=== PATIENT | male | born 1950 | race Caucasian/White ===

== ENCOUNTER → 2021-01-07 | Day surgery (SDC) | payer MEDICARE ==
[2021-01-03 14:31] LABS: BASOPHILS # (AUTO) 0.1 (0.0-0.1); BASOPHILS % 0.7 % (0.0-1.0); EOSINOPHILS # (AUTO) 0.2 (0.0-0.4); EOSINOPHILS % 1.9 % (0.0-6.0); HEMATOCRIT 41.5 % (38.2-49.6); HEMOGLOBIN 13.6 g/dL (14.0-18.0); LYMPHOCYTES % 24.1 % (18.0-39.1); MEAN CORPUSCULAR HEMOGLOBIN 32.9 pg (28-32); MEAN CORPUSCULAR HGB CONC 32.8 g/dL (31-35); MEAN CORPUSCULAR VOLUME 100.5 fL (81-99); MONOCYTES # (AUTO) 0.7 (0.2-0.8); MONOCYTES % 8.9 % (4.4-11.3); NEUTROPHILS # (AUTO) 5.1 (2.1-6.9); NEUTROPHILS % 63.7 % (38.7-80.0); PLATELET COUNT 154 x10e3/uL (140-360); RED BLOOD COUNT 4.13 x10e6/uL (4.3-5.7); RED CELL DISTRIBUTION WIDTH 13.1 % (11.7-14.4)
[2021-01-03 14:44] LABS: INR 0.87; PROTHROMBIN TIME 12.4 seconds (11.9-14.5)
[2021-01-03 14:45] LABS: PARTIAL THROMBOPLASTIN TIME 35.6 seconds (23.8-35.5)
[2021-01-03 14:52] LABS: ANION GAP 12.9 mmol/L (8-16); CALCIUM 9.4 mg/dL (8.4-10.2); CREATININE, SERUM 1.94 mg/dL (0.72-1.25); POTASSIUM 4.9 mmol/L (3.5-5.1)
[~2021-01-07] MED LIST: ASPIRIN81 MG PO; CLOPIDOGREL75 MG PO; FENTANYL CITRATE/PF 100MCG/2 ML INJ ONE; GLUCAGON FOR INJ 1 MG VIAL ONE; HYOSCYAMINE SULFATE 0.5 MG/ML INJ ONE; IRON PO; LIDOCAINE HCL 2% LOCAL INJ 5 ML SDV VIAL INJ ONE; LIPITOR10 MG PO; METOPROLOL TART25 MG PO; MIDAZOLAM HCL 2 MG/2 ML VIAL ONE; MULTI-VITAMIN1 EACH PO; NEXIUM20 MG PO; NITROGLYCERIN0.4 MG SL; PROPOFOL IV EMULSION 10 MG/ML 20 ML VIAL ONE; TYLENOL ARTHRITIS PO
[2021-01-07 14:42] VITALS: BP 130/81
== END | disposition home or self-care (01) ==
LOC: OR 09:56
PROVIDERS: ATTEND Internal Medicine Gastroenterology
DX: K29.70 Gastritis, unspecified, without bleeding (principal); K63.5 Polyp of colon; K21.9 Gastro-esophageal reflux disease without esophagitis; K20.90 Esophagitis, unspecified without bleeding; K44.9 Diaphragmatic hernia without obstruction or gangrene; K57.30 Diverticulosis of large intestine without perforation or abscess without bleeding; K64.8 Other hemorrhoids; R19.5 Other fecal abnormalities; D64.89 Other specified anemias; J44.9 Chronic obstructive pulmonary disease, unspecified; I25.10 Atherosclerotic heart disease of native coronary artery without angina pectoris; I25.2 Old myocardial infarction; I12.9 Hypertensive chronic kidney disease with stage 1 through stage 4 chronic kidney disease, or unspecified chronic kidney disease; N18.30 Chronic kidney disease, stage 3 unspecified; E78.00 Pure hypercholesterolemia, unspecified; F32.9 Major depressive disorder, single episode, unspecified; Z88.6 Allergy status to analgesic agent; Z88.0 Allergy status to penicillin; Z01.810 Encounter for preprocedural cardiovascular examination; Z01.812 Encounter for preprocedural laboratory examination; Z79.02 Long term (current) use of antithrombotics/antiplatelets; Z79.82 Long term (current) use of aspirin; Z68.31 Body mass index [BMI] 31.0-31.9, adult
CPT/HCPCS: 36415; 43239; 45380; 45385; 80048; 85025; 85610; 85730; 93005; J2250; J3010; 45378; J1610; J1980; J2001

== ENCOUNTER → 2021-03-04 | Outpatient (CLI) | payer MEDICARE ==
[~2021-03-04] MED LIST changes: -FENTANYL CITRATE/PF 100MCG/2 ML INJ ONE; -GLUCAGON FOR INJ 1 MG VIAL ONE; -HYOSCYAMINE SULFATE 0.5 MG/ML INJ ONE; +IOPAMIDOL 370 MG/ML 200 ML INFUS..BTL INJ ONE; -LIDOCAINE HCL 2% LOCAL INJ 5 ML SDV VIAL INJ ONE; -MIDAZOLAM HCL 2 MG/2 ML VIAL ONE; -PROPOFOL IV EMULSION 10 MG/ML 20 ML VIAL ONE; +SODIUM CHLORIDE 0.9% 500ML 500 ML ONE; +SODIUM CHLORIDE 0.9% 50ML 50 ML ONE
== END ==
LOC: CT 15:31
PROVIDERS: ATTEND Internal Medicine Gastroenterology
DX: R10.9 Unspecified abdominal pain (principal); K29.60 Other gastritis without bleeding
CPT/HCPCS: 74177; J7040; Q9967

== ENCOUNTER → 2022-01-02 | Day surgery (SDC) | payer MEDICARE ==
[2021-12-31 13:53] LABS: BASOPHILS # (AUTO) 0.1 (0.0-0.1); BASOPHILS % 0.6 % (0.0-1.0); EOSINOPHILS # (AUTO) 0.2 (0.0-0.4); EOSINOPHILS % 1.9 % (0.0-6.0); HEMOGLOBIN 14.7 g/dL (14.0-18.0); LYMPHOCYTES # (AUTO) 1.5 (1.0-3.2); LYMPHOCYTES % 18.6 % (18.0-39.1); MEAN CORPUSCULAR HEMOGLOBIN 33.9 pg (28-32); MEAN CORPUSCULAR HGB CONC 32.7 g/dL (31-35); MEAN CORPUSCULAR VOLUME 103.7 fL (81-99); MONOCYTES # (AUTO) 0.8 (0.2-0.8); MONOCYTES % 9.2 % (4.4-11.3); NEUTROPHILS # (AUTO) 5.7 (2.1-6.9); NEUTROPHILS % 68.6 % (38.7-80.0); PLATELET COUNT 139 x10e3/uL (140-360); RED BLOOD COUNT 4.34 x10e6/uL (4.3-5.7); RED CELL DISTRIBUTION WIDTH 13.1 % (11.7-14.4)
[~2022-01-02] MED LIST changes: +BALANCED SALT SOLN (OPTH) 15 ML BTL IO ONE; +FAMOTIDINE20 MG PO; +FARXIGA10 MG PO; +FENTANYL CITRATE/PF 100MCG/2 ML INJ ONE; +HYDROCODON-ACE1 EA12 PO; -IOPAMIDOL 370 MG/ML 200 ML INFUS..BTL INJ ONE; +MIDAZOLAM HCL 2 MG/2 ML VIAL ONE; +POVIDONE IODINE 0.05% 0.05 % ML PO ONE; +POVIDONE IODINE 5% (OPTH) 30 ML BTL ONE; +PROPOFOL IV EMULSION 10 MG/ML 20 ML VIAL ONE; +PROTONIX20 MG PO; +SODIUM BICARBO650 MG PO; -SODIUM CHLORIDE 0.9% 500ML 500 ML ONE; -SODIUM CHLORIDE 0.9% 50ML 50 ML ONE; +SPIRIVA18 MCG INH; +TOBRAMYCIN 0.3% OPTH OINT 3.5 GM TUBE ONE; +WIXELA 250-501 EACH INH
[2022-01-02 14:00] VITALS: BP 144/80
== END | disposition home or self-care (01) ==
LOC: OR 10:25
PROVIDERS: ATTEND Ophthalmology
DX: D23.122 Other benign neoplasm of skin of left lower eyelid, including canthus (principal); I12.9 Hypertensive chronic kidney disease with stage 1 through stage 4 chronic kidney disease, or unspecified chronic kidney disease; N18.30 Chronic kidney disease, stage 3 unspecified; I25.10 Atherosclerotic heart disease of native coronary artery without angina pectoris; I25.2 Old myocardial infarction; I45.10 Unspecified right bundle-branch block; J44.9 Chronic obstructive pulmonary disease, unspecified; K44.9 Diaphragmatic hernia without obstruction or gangrene; K21.9 Gastro-esophageal reflux disease without esophagitis; E66.9 Obesity, unspecified; M19.90 Unspecified osteoarthritis, unspecified site; F32.A Depression, unspecified; H91.90 Unspecified hearing loss, unspecified ear; Z88.6 Allergy status to analgesic agent; Z88.0 Allergy status to penicillin; Z01.810 Encounter for preprocedural cardiovascular examination; Z01.812 Encounter for preprocedural laboratory examination; Z20.822 Contact with and (suspected) exposure to COVID-19; Z79.82 Long term (current) use of aspirin; Z79.02 Long term (current) use of antithrombotics/antiplatelets; Z79.899 Other long term (current) drug therapy; Z68.32 Body mass index [BMI] 32.0-32.9, adult; Z95.5 Presence of coronary angioplasty implant and graft; Z87.891 Personal history of nicotine dependence
CPT/HCPCS: 0223U; 14060; 36415; 85025; 88304; 93005; J2250; J2704; J3010